=== PATIENT | female | born 1945 | race Caucasian/White ===

== ENCOUNTER 2016-12-05 10:52 | Day surgery (SDC) | payer BC ==
[2016-11-29 13:50] LABS: HEMATOCRIT 45.9 % (36.0-48.0)
--- NOTE | ~2016-12-05 | OP ---
Record Of Operation [facility] [address] [place]. [address] NAME: JACQUELINE LOMBARDO : 45 [place] : [facility] [place] [id number] AGE: 71 ADM/REG DATE : 12/05/16 MR#: [id number] REPORT SERV DATE: 12/05/16 DICTATED BY: TONY WALSH DATE: 12/05/16 REPORT STATUS : Draft TRANSCRIBED BY: MODL DATE: 12/05/16 DATE OF PROCEDURE: 12/05/2016 PREOPERATIVE DIAGNOSIS: 1. Left cubital tunnel syndrome. 2. Left hand and to middle finger Dupuytren's contracture. PROCEDURES: 1. Left cubital tunnel release. 2. Left hand and the middle finger Dupuytren's contracture release. PHYSICIAN: Tony Walsh M.D. MACHINE OPERATOR HELPER: Luan Robertson. ANESTHESIA: General. ESTIMATED BLOOD LOSS: Less than 1 mL. COMPLICATIONS: None. SPECIMENS: Palmar fasciitis tissue. DISPOSITION: The patient tolerated the procedure well and was ready to be brought to recovery room having tolerated the procedure without any difficulties. PROCEDURE NOTE: The patient was brought to the operating room and placed in supine position. After general anesthesia was administered, a pneumatic tourniquet was placed on the left proximal arm, and the left upper extremity distal to the tourniquet was prepped and draped in the usual sterile manner. A surgical timeout was performed and all were in agreement. An Esmarch was then used to exsanguinate the extremity and tourniquet was inflated. Cubital tunnel release carried out by taking a 15-blade scalpel, making a 6 to 7 cm longitudinal incision over the cubital tunnel which was approximately 1 to 2 cm posterior to the medial epicondyle. After the skin was incised, blunt and sharp dissection was carried out. Superficial nerves were protected. Cubital tunnel retinaculum was identified and carefully incised taking care to protect the underlying ulnar nerve. More proximally, a portion of the intramuscular septum and superficial fascia of the arm were divided and left finger was placed in the wound to make sure that there was no compression from any transverse crossing bands. More distally, the two heads of the FCU were divided. After doing so, elbow was put through a range of motion and the ulnar nerve appeared well decompressed. The wound was irrigated and skin was later closed with deep and running Monocryl suture. The Dupuytren's contracture of Dupuytren's palmar fasciitis was carried out by taking a 15- blade scalpel, making a Na type incision in the proximal palm directed distally into Record Of Operation [place] [id number] [facility]. [address] NAME: JACQUELINE LOMBARDO : 45 [place]US : [facility] [place] PAT#: [id number] AGE: 71 ADM/REG DATE : 12/05/16 MR#: [id number] REPORT SERV DATE: 12/05/16 DICTATED BY: TONY WALSH DATE: 12/05/16 REPORT STATUS : Draft TRANSCRIBED BY: ERNESTINE DATE: 12/05/16 the middle finger just stopping proximal to the PIP crease. Through this incision, blunt and sharp dissection was carried out, and the pretendinous cord was identified as well as the common and terminal digital nerves to the middle finger. Under careful dissection, the palmar fascia was from the surrounding tissues and excised. The tissue was sent to Pathology. The wound was irrigated and inspection revealed an intact ulnar and radial digital nerve and artery. The wound was then irrigated again and skin was closed with 4-0 nylon suture. A sterile dressing was applied to each site and a volar splint was applied to the left wrist. The patient tolerated the procedure well and was ready to be brought to recovery room having tolerated procedure well without any difficulties. LOLI/ERNESTINE Tony Walsh M.D. / [id number] CC: Belle Marin M.D.
[~2016-12-05 10:52] MED LIST: BETAP120 PO; BETAPACE AF120 MG PO; BETAPACE80 PO; C25 PO; CARD60 PO; CENTRUM PO; CENTRUM TAB1 TAB PO; DIL4TAB PO; DOMPERIDONE; ERY-TAB250 MG PO; JANTOVEN5 MG PO; KAPIDEX60 MG PO; KDUR20 PO; KLONO2 PO; KLOR-CON M2020 MEQ PO; L40 PO; LEVOTHYROXIN25 MCG PO; LOTENSIN HCT1 TA1 PO; MAGOX4 PO; MAXIMUM D3 PO; MEP50TAB PO; NEXIUM40 PO; NORCO1 TA2 PO; OXYCON10 PO; PCET PO; PR25 PO; PREV30 PO; PROTONIX PO; REG PO; ULTRAM50 PO; VITAMIN B-121000 MC1 SL; VITAMIN D31000 UNIT PO; Z10 PO; ZAROXOLYN10 MG OR; ZOFRAN4 PO
[2016-12-05 11:58] LABS: CALCIUM, SERUM 8.7 MG/DL (8.5-10.4); CHLORIDE, SERUM 106 MMOL/L (96-112); CO2 (CARBON DIOXIDE) 26 MMOL/L (24-34); CREATININE 0.77 MG/DL (0.55-1.02); GFR AFRICAN AMERICAN 90 ML/MIN (>=60); GFR NON AFRICAN AMERICAN 78 ML/MIN (>=60); POTASSIUM, SERUM 4.3 MMOL/L (3.5-5.3); SODIUM, SERUM 139 MMOL/L (135-148)
[2016-12-05 11:59] LABS: BUN (BLOOD UREA NITROGEN) 15 MG/DL (6-23); GLUCOSE, SERUM 117 MG/DL (60-99)
== END 2016-12-05 17:29 | disposition home or self-care (01) ==
LOC: SDC 10:52
PROVIDERS: Orthopaedic Surgery Hand Surgery
PROC: 0JN Subcutaneous Tissue and Fascia, Release (ICD-10-PCS; 2016-12-05)
PROC: 01N40ZZ Release Ulnar Nerve, Open Approach (ICD-10-PCS; principal; 2016-12-05 12:45)
DX: M72.0 Palmar fascial fibromatosis [Dupuytren] (principal); G56.22 Lesion of ulnar nerve, left upper limb; F41.9 Anxiety disorder, unspecified; F32.9 Major depressive disorder, single episode, unspecified; E03.9 Hypothyroidism, unspecified; K21.9 Gastro-esophageal reflux disease without esophagitis; G47.33 Obstructive sleep apnea (adult) (pediatric); I48.91 Unspecified atrial fibrillation; M19.90 Unspecified osteoarthritis, unspecified site; Z90.710 Acquired absence of both cervix and uterus; Z95.1 Presence of aortocoronary bypass graft; Z99.89 Dependence on other enabling machines and devices; Z88.5 Allergy status to narcotic agent; Z98.890 Other specified postprocedural states
CPT/HCPCS: 80048; 85014; 85018; 88304; 93005; 93288; A9270-GY; J0330; J0690; J2250; J2405; J3010